=== PATIENT | male | born 2000 | race Caucasian/White ===

== ENCOUNTER 2020-12-14 19:32 | Emergency (ER) | payer BC, OTHER | END 2020-12-14 20:10 | disposition home or self-care (01) | LOC: NAV ERS 19:32 | DX: K08.89 Other specified disorders of teeth and supporting structures (principal); E03.9 Hypothyroidism, unspecified; J45.909 Unspecified asthma, uncomplicated | CPT/HCPCS: 99282 ==

== ENCOUNTER 2025-06-08 13:52 | Emergency (ER) | payer BC, SELFPAY ==
[2025-06-08] MEDS ORDERED: Ibuprofen 800 MG TAB ONE (14:18)
== END 2025-06-08 14:25 | disposition home or self-care (01) ==
LOC: NAV ERS 13:52
DX: M54.50 Low back pain, unspecified (principal); E03.9 Hypothyroidism, unspecified; Z79.890 Hormone replacement therapy; W19.XXXA Unspecified fall, initial encounter; Y99.0 Civilian activity done for income or pay
CPT/HCPCS: 99283